=== PATIENT | male | born 1975 | race Caucasian/White ===

== ENCOUNTER 2018-09-14 18:12 | Emergency (ER) | payer MEDICAID ==
[2018-09-14 19:40] VITALS: BP 124/88
--- NOTE | 2018-09-14 19:43 | UC ---
Skin Complaint HPI - HPI Summary HPI Summary: 42-year-old nonverbal male who lives in a [facility]. His caregiver brought him in today because she noticed a red area on his right lateral thigh which looked like a burn and had some redness to it. No pus drainage. She marked the edges and in the past few hours she has noted that it went past the marked edges. He's had no fever or chills and no other complaints. - History of Current Complaint Chief Complaint: UCSkin Time Seen by Provider: 09/14/18 19:24 Stated Complaint: SKIN COMPLAINT Hx Obtained From: Patient Onset/Duration: Gradual Onset, Other Timing: Constant Onset Severity: Mild Current Severity: Mild - Reddened area was noted today. Pain Intensity: 0 Location: Other - Right thigh Character: Redness - The area actually looks like may be he's been burned but the caregiver could not give any information as to how that would happen. Aggravating Factor(s): Nothing Alleviating Factor(s): Nothing Associated Signs & Symptoms: Positive: Negative - Allergy/Home Medications Allergies/Adverse Reactions: Allergies Allergy/AdvReac Type Severity Reaction Status Date / Time seasonal Allergy Sneezing Uncoded 09/14/18 19:27 Home Medications: Home Medications Cerovite Jr Tab 1 tab PO DAILY 09/14/18 [History Confirmed 09/14/18] Cholecalciferol (Vitamin D3) [D3] 800 unit PO DAILY 09/14/18 [History Confirmed 09/14/18] Famotadine 20 mg PO BID 09/14/18 [History Confirmed 09/14/18] Fluticasone NASAL SPRAY 50MCG* [Flonase NASAL SPRAY 50MCG*] 2 spray BOTH NARES DAILY 09/14/18 [History Confirmed 09/14/18] Loratadine 10 mg PO DAILY 09/14/18 [History Confirmed 09/14/18] Polyethylene Glycol 3350* [Miralax*] 527 gm PO DAILY 09/14/18 [History Confirmed 09/14/18] PMH/Surg Hx/FS Hx/Imm Hx Previously Healthy: Yes - Family History Known Family History: Positive: Non-Contributory - Social History Lives: Longterm Alcohol Use: None Substance Use Type: None Smoking Status (MU): Never Smoked Tobacco - Immunization History Most Recent Tetanus Shot: July 2018 Review of Systems All Other Systems Reviewed And Are Negative: Yes Skin: Positive: Other - Patient has a reddened area on his right lateral thigh which has some blistering in the middle which looks actually like a first and second-degree burn. Motor: Positive: Other - Patient has contractures of arms and legs. Musculoskeletal: Positive: Decreased ROM Neurological: Positive: Other - Unable to obtain this information. Psychological: Positive: Other - Non-verbal Physical Exam Triage Information Reviewed: Yes Completion Of Physical Exam Limited Due To: Other - Patient is nonverbal Appearance: Well-Appearing, No Pain Distress, Well-Nourished Vital Signs: Initial Vital Signs Temp 98.5 F 09/14/18 19:31 Pulse 92 09/14/18 19:31 Resp 24 09/14/18 19:31 BP 124/88 09/14/18 19:31 Pulse Ox 97 09/14/18 19:31 Vital Signs Reviewed: Yes Skin: Positive: Other - Patient has an erythematous area on his right thigh which the edges are marked by the caregiver. There does appear to be some loose skin in the midportion of it similar to a second-degree burn with a blister that broke however the caregiver states that she has not had any henderson or injuries to that area. It is warm to touch, no pus drainage however because the redness is starting to spread outside the marked lines I am going to treated with an antibiotic. Course/Dx - Course Course Of Treatment: Patient is fairly cooperative for the caregiver however he is nonverbal and is in a wheelchair. Going to give him a dose of Bactrim DS 1 tablet here and then to continue twice a day for the next 10 days. They're to watch for any worsening symptoms and follow up as needed. - Diagnoses Provider Diagnosis: Cellulitis, leg Discharge - Sign-Out/Discharge Documenting (check all that apply): Patient Departure All imaging exams completed and their final reports reviewed: No Studies - Discharge Plan Condition: Fair Disposition: HOME Prescriptions: Sulfamethox/Trimethoprim DS* [Bactrim DS 800/160 TAB*] 1 tab PO BID 10 Days #19 tab Patient Education Materials: Cellulitis (DC) Referrals: Skip Harper MD [Primary Care Provider] - Additional Instructions: Change the dressing daily and apply antibiotic ointment. Follow-up with your primary care provider if any worsening symptoms, fever or chills, red streaks up the leg. Take the Bactrim with food. - Billing Disposition and Condition Condition: FAIR Disposition: Home
[2018-09-14] MEDS ORDERED: Sulfamethox/Trimethoprim DS 800/160* TAB PO ONE (19:46)
[2018-09-14] MEDS: Sulfamethox/Trimethoprim DS 800/160* TAB PO ONE ×2 (20:19→20:21)
== END 2018-09-14 20:21 | disposition home or self-care (01) ==
LOC: UCCORT 18:12
DX: L03.115 Cellulitis of right lower limb (principal)
CPT/HCPCS: 99212; A9270-GY; G0463